=== PATIENT | female | born 1980 | race Asian ===

== ENCOUNTER 2020-01-17 21:17 | Emergency (ER) | payer OTHER ==
[~2020-01-17] VITALS: Ht 157.5 cm; Wt 56.7 kg
--- NOTE | 2020-01-17 21:48 | NUR ---
AWAITING COVID TEST, CALLED LAB.
--- NOTE | 2020-01-17 22:02 | NUR ---
Patient discharged to home in stable condition. Written and verbal after care instructions given. Patient verbalizes understanding of instruction. Covid test sent.
[2020-01-17 22:03] VITALS: BP 128/78
== END 2020-01-17 22:03 | disposition home or self-care (01) ==
LOC: ER 21:23
DX: S61.236A Puncture wound without foreign body of right little finger without damage to nail, initial encounter (principal); W50.3XXA Accidental bite by another person, initial encounter; Y93.89 Activity, other specified; Y92.230 Patient room in hospital as the place of occurrence of the external cause; Y99.0 Civilian activity done for income or pay; J45.909 Unspecified asthma, uncomplicated; Z77.21 Contact with and (suspected) exposure to potentially hazardous body fluids